=== PATIENT | female | born 1960 | race Caucasian/White ===

== ENCOUNTER → 2016-12-10 | Day surgery (SDC) | payer BC ==
[~2016-12-10] MED LIST: BENADRYL25 M3 PO
--- NOTE | ~2016-12-10 | OR ---
Unit #: [id number] #: [id number] Patient: CLARENCE NOBLES I [id number] [facility] [address]. [place], [place] [address] [id number] O MR#: [id number] NAME: CLARENCE NOBLES I. ROOM: Date of Procedure: 12/10/2016 Admission Date: 12/10/2016 Surgeon: Hayden Bhat M.D. : 1960 Attending Physician: Hayden Bhat M.D. Primary Care Physician: Elizabeth Vela M.D. OPERATIVE REPORT PRIMARY CARE PHYSICIAN Elizabeth Vela M.D. PREOPERATIVE DIAGNOSIS Hemodynamically stable gastrointestinal bleeding. POSTOPERATIVE DIAGNOSES 1. Mild gastritis. 2. Sigmoid diverticulosis. 3. Sigmoid polyp. 4. Internal hemorrhoids, grade 2. PROCEDURES PERFORMED Esophagogastroduodenoscopy to third portion of the duodenum with antral biopsy x1; colonoscopy to cecum with polypectomy x1 and banding of internal hemorrhoids x2. ANESTHESIA Monitored anesthesia. INDICATIONS FOR PROCEDURE Ms. Olmos is a 56-year-old female presented to the office complaining of progressive hematochezia. She said it has been increasing over time. She denied any rectal or abdominal pain in the lower abdomen, however, she did have some nausea and intermittent epigastric discomfort. DESCRIPTION OF PROCEDURE The patient was admitted to [facility], positively identified, transported to the endoscopy unit. After appropriate monitoring and positioning, a bite block was placed and she was sedated by the nurse screw machine repairer. The endoscope was passed through the oral cavity in the esophagus. Under direct vision, we passed through the esophagus into the stomach, insufflated the stomach, and passed through the pylorus down to the third portion of duodenum. Duodenum and duodenal bulb were normal. In the stomach, she appeared to have some [id number] gastritis and a CLOtest was taken. No ulcer disease. No gastric polyps or other mucosal abnormalities were noted. In retroflexing the scope above the incisura, the upper fundus and cardia appeared normal. As I came back in a retrograde fashion, the GE junction was well demarcated. There was no Burns mucosa and no esophagitis. No hiatal hernia was appreciated. In retrograde visualization, the esophageal mucosa was normal and the larynx was normal. After completion of the upper Unit #: [id number] #: [id number] Patient: CLARENCE NOBLES I endoscopy, the patient was repositioned. On rectal examination, she had an external hemorrhoidal skin tag, but no active hemorrhoidal disease. Digital examination was unremarkable and there was no blood on the examining finger. Colonoscope was passed through the anal verge throughout the extent of the colon to the cecum where the appendiceal orifice and ileocecal valve were photo-documented. On antegrade and retrograde visualization, a polyp was identified in the sigmoid colon. It was biopsied and completely excised. In the sigmoid colon and also in the upper descending colon, there was diverticulosis, but none of the diverticula demonstrated any evidence of diverticulitis or recent bleeding. As we got back to the rectal vault, I retroflexed the scope and she had some grade 2 internal hemorrhoids that showed visible vessels and appeared friable. Both of these were banded. No other pathologic hemorrhoids were seen. The patient tolerated the procedure well and was transported to recovery in stable condition. I will await the CLOtest before determining if any further treatment is necessary. She was instructed to use a high-fiber diet both to prevent diverticulitis and to help with bowel function to help prevent future hemorrhoidal disease. The patient was instructed on sitz baths and given some hydrocodone for any postoperative discomfort. The patient tolerated the procedure well and was transported to recovery in stable condition. No family was available to talk with after the procedure. I went over the instructions with the patient and the nurses as well. Dictated by... Cristóbal Davies/alejandra TD: 12/11/2016 05:15 JOB #: [id number] OPERATIVE REPORT Page 1 of 1 X Hayden Bhat MD PROCEDURE OPERATIVE NOTE
== END | disposition home or self-care (01) ==
LOC: COPS 11:14
DX: K63.5 Polyp of colon (principal); K29.70 Gastritis, unspecified, without bleeding; K57.30 Diverticulosis of large intestine without perforation or abscess without bleeding; K64.1 Second degree hemorrhoids; E78.5 Hyperlipidemia, unspecified; J30.9 Allergic rhinitis, unspecified; K92.1 Melena; Z80.3 Family history of malignant neoplasm of breast; Z83.3 Family history of diabetes mellitus; Z82.49 Family history of ischemic heart disease and other diseases of the circulatory system; Z88.5 Allergy status to narcotic agent; Z77.22 Contact with and (suspected) exposure to environmental tobacco smoke (acute) (chronic); Z90.710 Acquired absence of both cervix and uterus; Z98.890 Other specified postprocedural states; Z90.49 Acquired absence of other specified parts of digestive tract; Z87.891 Personal history of nicotine dependence; Z79.899 Other long term (current) drug therapy
CPT/HCPCS: 87077; 88305; J2250